=== PATIENT | female | born 1940 | race Caucasian/White ===

== ENCOUNTER → 2017-03-05 | Outpatient (CLI) | payer MEDICARE, OTHER ==
--- NOTE | 2017-03-05 17:30 | Diagnostic Imaging Report ---
PROCEDURE: MR imaging cervical spine without contrast. TECHNIQUE: Multiplanar, multisequence MR imaging of the cervical spine was performed without contrast. INDICATION: Chronic neck pain. No comparison is available. FINDINGS: Advanced multilevel cervical degenerative disc disease and facet arthropathy are present with multiple levels of advanced disc degeneration and disc space height loss most severe at the C5-C6 level. There is some associated endplate sclerosis at that level. There is an anterolisthesis of C4 on C5, slight retrolisthesis of C5 on C6 and anterolisthesis of C6 on C7 and C7 on T1. There is multilevel facet arthropathy. There is no evidence to suggest an acute osseous injury or underlying osseous lesion. The visualized intracranial contents are unremarkable. At C2-C3, there is mild left-sided foraminal stenosis due to facet arthropathy. There is no significant canal or right foraminal stenosis. At the C3-C4 level, there is posterior disc osteophyte complex eccentric to the left with moderate narrowing of the central canal. There is moderate left and mild right neuroforaminal stenosis. At C4-C5, there is endplate spurring and slight disc bulging with mild narrowing of the central canal. There is no significant neuroforaminal stenosis. At the C5-C6 level, large posterior disc osteophyte complex is present as well as posterior ligamentous thickening. There is severe central canal stenosis with flattening of the cervical cord but no definitive cord edema. There is moderate bilateral foraminal stenosis. C6-C7 demonstrates endplate spurring and disc bulging with mild narrowing of the central canal. There is mild narrowing of the left neuroforamen. At C7-T1, disc bulge and posterior facet arthropathy and ligamentous thickening result in an additional level of severe central canal stenosis. There is mild to moderate bilateral foraminal stenosis. There is no abnormal epidural process. The soft tissues of the neck demonstrate no acute abnormalities. IMPRESSION: 1. Advanced multilevel cervical degenerative disc disease with multiple levels of spinal listhesis as described. 2. No acute osseous abnormality is demonstrated though there are advanced degenerative endplate changes most advanced at the C5-C6 level. 3. Variable degrees of canal and foraminal stenosis are described above. The most significant findings are that of severe central canal stenosis at both the C5-C6 and C7-T1 levels. 4. Variable degrees of foraminal stenosis detailed level by level. 5. No cord edema or abnormal epidural process demonstrated. Dictated by: Dictated on workstation # [id number]
== END ==
LOC: RAD 16:03
PROVIDERS: ATTEND Internal Medicine
DX: M50.322 Other cervical disc degeneration at C5-C6 level (principal); M43.12 Spondylolisthesis, cervical region; M48.02 Spinal stenosis, cervical region
CPT/HCPCS: 72141